=== PATIENT | male | born 1940 | race Caucasian/White ===

== ENCOUNTER 2017-01-09 13:29 | Emergency (ER) | payer MEDICARE ==
[2017-01-09 13:48] VITALS: BP 151/80
[2017-01-09] MEDS ORDERED: Lidocaine 1% MPF* 2 ML VIAL INJ ONE (14:13)
--- NOTE | 2017-01-09 14:14 | UC ---
Laceration HPI - HPI Summary HPI Summary: While working outside sustained PW with broken stick to L hand webbing between 1st and 2nd finger. UTD on tetanus, no bleeding or immune d/o. Has full movement and sensitivity in R 2nd finger. - History Of Current Complaint Chief Complaint: UCLowerExtremity Stated Complaint: JOINT LAC Time Seen by Provider: 01/09/17 14:04 Hx Obtained From: Patient Laceration Location: Hand Mechanism Of Injury: Sharp Trauma Onset/Duration: Sudden Onset Severity: Mild - Allergies/Home Medications Allergies/Adverse Reactions: Allergies Allergy/AdvReac Type Severity Reaction Status Date / Time omnipaque Allergy Rash And Uncoded 09/14/16 08:16 Itching PMH/Surg Hx/FS Hx/Imm Hx Cancer History: Colorectal Cancer - Surgical History Surgical History: Yes Surgery Procedure, Year, and Place: left leg A BABY. [place] [facility] [place]SI[place] - Family History Known Family History: Positive: Hypertension - Social History Lives: With Family Alcohol Use: Weekly Alcohol Amount: BOTTLE OF WINE PER WEEK Substance Use Type: None Smoking Status (MU): Former Smoker Amount Used/How Often: PACK A DAY Have You Smoked in the Last Year: Yes When Did the Patient Quit Smoking/Using Tobacco: 06/2013 - Immunization History Most Recent Influenza Vaccination: 02/2013 Most Recent Tetanus Shot: UNKOWN Most Recent Pneumonia Vaccination: NEVER Review of Systems Constitutional: Negative Skin: Other - R hand lac Eyes: Negative ENT: Negative Respiratory: Negative Cardiovascular: Negative Gastrointestinal: Negative Genitourinary: Negative Motor: Negative Neurovascular: Negative Musculoskeletal: Negative Neurological: Negative Psychological: Negative All Other Systems Reviewed And Are Negative: Yes Physical Exam Triage Information Reviewed: Yes Appearance: Well-Appearing, No Pain Distress, Well-Nourished Vital Signs: Initial Vital Signs Temp 97.8 F 01/09/17 13:45 Pulse 61 01/09/17 13:45 Resp 18 01/09/17 13:45 BP 151/80 01/09/17 13:45 Pulse Ox 100 01/09/17 13:45 Vital Signs Reviewed: Yes Eye Exam: Normal Eyes: Positive: Conjunctiva Clear ENT Exam: Normal ENT: Positive: Hearing grossly normal. Negative: Nasal congestion, Nasal drainage, Tonsillar swelling, Muffled/hoarse voice Dental Exam: Normal Neck exam: Normal Neck: Positive: Supple, Nontender, No Lymphadenopathy Respiratory Exam: Normal Respiratory: Positive: Chest non-tender, Lungs clear, Normal breath sounds, No respiratory distress, No accessory muscle use Cardiovascular Exam: Normal Cardiovascular: Positive: RRR, No Murmur Musculoskeletal: Positive: Strength Intact, ROM Intact Neurological Exam: Normal Neurological: Positive: Alert Psychological Exam: Normal Skin Exam: Other - 2cm lac to R hand with superficial debris noted Laceration Repair - Laceration Repair 1 Description: Stellate Laceration Size After Repair: Length (cm) - 2, Width (mm) - 0, Depth (mm) - 0 Contamination/FB Removal: Multiple small organic FB removal with wound brush and pick Modified For Repair: No Type Injection: Local Anesthesia Used: 1.0% Lido - 3mL Cleansing Completed Via Routine Prep: Yes Irrigation With Pressure Irrigation Device: Yes Closure Material: Sutures Closure Method: Single Layer Suture Of: Skin Suture Type: Nylon - #5 5-0 Laceration Course/Dx - Differential Dx - Laceration/Wound Provider Diagnoses: L hand laceration repair Discharge - Discharge Plan Condition: Stable Disposition: HOME Patient Education Materials: Laceration (ED) Referrals: Caroline Hernandez MD [Primary Care Provider] - Additional Instructions: Come back in 9-10 days for suture removal. Come back sooner if you have increasing redness, drainage, or streaking from the wound.
--- NOTE | 2017-01-09 14:33 | RAD ---
HISTORY: Penetrating trauma, evaluate for foreign body COMPARISONS: None VIEWS: 4, Frontal, lateral, and oblique views of the left hand FINDINGS: BONE DENSITY: Normal. BONES: There is no displaced fracture. 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 ALIGNMENT: There is no dislocation. SOFT TISSUES: Unremarkable. OTHER FINDINGS: There is no radiopaque foreign body IMPRESSION: NO ACUTE OSSEOUS INJURY. NO RADIOPAQUE FOREIGN BODY. IF SYMPTOMS PERSIST, RECOMMEND REPEAT IMAGING.
== END 2017-01-09 15:25 | disposition home or self-care (01) ==
LOC: UCEAST 13:29
DX: S61.422A Laceration with foreign body of left hand, initial encounter (principal); W26.8XXA Contact with other sharp object(s), not elsewhere classified, initial encounter; Y93.89 Activity, other specified; Y92.9 Unspecified place or not applicable; Z85.038 Personal history of other malignant neoplasm of large intestine; Z87.891 Personal history of nicotine dependence
CPT/HCPCS: 12001; 99211; G0463

== ENCOUNTER 2021-08-08 02:26 | Inpatient (IN) ==
[2021-08-08 03:16] LABS: ABS Basophils 0.1 10^3/ul (0-0.2); ABS Eosinophils 0.3 10^3/ul (0-0.6); ABS Lymphocytes 2.5 10^3/ul (1.0-4.8); ABS Monocytes 0.6 10^3/ul (0-0.8); ABS Neutrophils 4.7 10^3/ul (1.5-7.7); Eosinophil % 3.1 %; Hematocrit 41 % (42-52); Hemoglobin 13.6 g/dL (14.0-18.0); Lymphocyte % 30.2 %; Mean Corpuscular HGB Conc 34 g/dL (31-36); Mean Corpuscular Hemoglobin 31 pg (27-31); Mean Corpuscular Volume 93 fL (80-94); Mean Platelet Volume 8.5 fL (7.4-10.4); Nucleated Red Blood Cells % 0.1; Platelet Count 254 10^3/uL (150-450); Red Blood Count 4.38 10^6 /uL (4.18-5.48); Red Cell Distribution Width 14 % (10-15); White Blood Count 8.2 10^3/uL (3.5-10.8)
[2021-08-08 03:38] LABS: High Sens Troponin Baseline 6 pg/mL (<20)
[2021-08-08 03:45] LABS: Urine Appearance Clear; Urine Bilirubin Negative (Negative); Urine Blood Negative (Negative); Urine Color Yellow; Urine Glucose Negative (Negative); Urine Ketones Negative (Negative); Urine Nitrite Negative (Negative); Urine Protein Negative (Negative); Urine Specific Gravity 1.026 (1.002-1.030); Urine Urobilinogen Negative (Negative)
[2021-08-08 04:13] LABS: ALT 9 U/L (7-52); AST 11 U/L (13-39); Albumin/Globulin Ratio 2.1 (1-3); Alcohol, S < 13 mg/dL (<13); Alkaline Phosphatase 54 U/L (35-149); Blood Urea Nitrogen 24 mg/dL (6-24); Calcium 9.2 mg/dL (8.6-10.3); Chloride 107 mmol/L (101-111); Globulin 1.9 g/dL (2-4); Glucose 82 mg/dL (70-100); Potassium 3.8 mmol/L (3.5-5.0); Sodium 141 mmol/L (135-145); Total Protein 5.9 g/dL (6.4-8.9); eGFR CKD-EPI 63.7 (>60)
[2021-08-08 04:20] LABS: Anion Gap 5 mmol/L (2-11); CO2 Carbon Dioxide 29 mmol/L (22-32)
[2021-08-08 04:27] LABS: TSH Ultra Thyroid Stim Horm 3.68 mcIU/mL (0.34-5.60)
[2021-08-08 04:37] LABS: High Sensitivity Troponin 1 Hr 6 pg/mL (<20)
[2021-08-08] MEDS ORDERED: LORazepam 2 mg VIAL 1 ml IV PUSH ONE (20:35)
[2021-08-08] MEDS ORDERED: Lorazepam PYXIS KEY PRN (20:35)
[2021-08-08] MEDS: Enoxaparin 40 MG/0.4 ML SYR SUBCUT SCH (20:57)
[2021-08-09] MEDS ORDERED: Lorazepam PYXIS KEY PRN (08:48)
[2021-08-09] MEDS: LORazepam 2 mg VIAL 1 ml IV PUSH PRN (13:36)
[2021-08-09] MEDS: Enoxaparin 40 MG/0.4 ML SYR SUBCUT SCH (22:50)
[2021-08-10] MEDS: Enoxaparin 40 MG/0.4 ML SYR SUBCUT SCH (21:06)
[2021-08-11 08:53] LABS: ABS Eosinophils 0.1 10^3/ul (0-0.6); ABS Lymphocytes 1.8 10^3/ul (1.0-4.8); ABS Monocytes 0.7 10^3/ul (0-0.8); ABS Neutrophils 10.2 10^3/ul (1.5-7.7); Eosinophil % 0.8 %; Hematocrit 45 % (42-52); Hemoglobin 15.3 g/dL (14.0-18.0); Lymphocyte % 14.2 %; Mean Corpuscular HGB Conc 34 g/dL (31-36); Mean Corpuscular Hemoglobin 32 pg (27-31); Mean Corpuscular Volume 92 fL (80-94); Mean Platelet Volume 8.2 fL (7.4-10.4); Nucleated Red Blood Cells % 0.1; Platelet Count 326 10^3/uL (150-450); Red Blood Count 4.83 10^6 /uL (4.18-5.48); Red Cell Distribution Width 14 % (10-15); White Blood Count 12.9 10^3/uL (3.5-10.8)
[2021-08-11 09:37] LABS: Calcium 9.5 mg/dL (8.6-10.3); Potassium 4.3 mmol/L (3.5-5.0)
[2021-08-11] MEDS ORDERED: Lactated Ringers 1000 ml BAG 1,000 ML IV ONE (10:55)
[2021-08-11 11:46] LABS: C Reactive Protein 14.9 mg/L (<8.01)
[2021-08-11 11:48] LABS: Rapid COVID-19 Molecular Undetected (Undetected)
[2021-08-11] MEDS: LORazepam 2 mg VIAL 1 ml IV PUSH PRN (18:39)
[2021-08-11] MEDS: Enoxaparin 40 MG/0.4 ML SYR SUBCUT SCH (23:57)
[2021-08-12 10:10] LABS: Urine Appearance Clear; Urine Bilirubin Negative (Negative); Urine Blood Negative (Negative); Urine Color Yellow; Urine Glucose Negative (Negative); Urine Ketones Trace (Negative); Urine Nitrite Negative (Negative); Urine Protein Negative (Negative); Urine Specific Gravity 1.026 (1.002-1.030); Urine Urobilinogen Negative (Negative)
[2021-08-12 11:05] LABS: ABS Basophils 0.1 10^3/ul (0-0.2); ABS Eosinophils 0.2 10^3/ul (0-0.6); ABS Lymphocytes 1.6 10^3/ul (1.0-4.8); ABS Monocytes 0.6 10^3/ul (0-0.8); ABS Neutrophils 5.2 10^3/ul (1.5-7.7); Eosinophil % 2.4 %; Hematocrit 41 % (42-52); Hemoglobin 14.2 g/dL (14.0-18.0); Lymphocyte % 21.3 %; Mean Corpuscular HGB Conc 34 g/dL (31-36); Mean Corpuscular Hemoglobin 32 pg (27-31); Mean Corpuscular Volume 93 fL (80-94); Mean Platelet Volume 7.7 fL (7.4-10.4); Platelet Count 272 10^3/uL (150-450); Red Blood Count 4.47 10^6 /uL (4.18-5.48); Red Cell Distribution Width 14 % (10-15); White Blood Count 7.6 10^3/uL (3.5-10.8)
[2021-08-12 12:00] LABS: Calcium 9.3 mg/dL (8.6-10.3); eGFR CKD-EPI 58.8 (>60)
[2021-08-12] MEDS: LORazepam 2 mg VIAL 1 ml IV PUSH PRN (15:36)
[2021-08-12] MEDS: Enoxaparin 40 MG/0.4 ML SYR SUBCUT SCH (20:08)
[2021-08-13 10:53] LABS: Calcium 9.7 mg/dL (8.6-10.3); Potassium 4.1 mmol/L (3.5-5.0); eGFR CKD-EPI 61.8 (>60)
[2021-08-13] MEDS: LORazepam 2 mg VIAL 1 ml IV PUSH PRN (11:44)
[2021-08-13] MEDS: Enoxaparin 40 MG/0.4 ML SYR SUBCUT SCH (22:03)
[2021-08-14] MEDS: LORazepam 2 mg VIAL 1 ml IV PUSH PRN (08:20)
[2021-08-14] MEDS: Enoxaparin 40 MG/0.4 ML SYR SUBCUT SCH (20:59)
[2021-08-15 06:28] LABS: Calcium 9.3 mg/dL (8.6-10.3); Potassium 3.8 mmol/L (3.5-5.0); eGFR CKD-EPI 63.7 (>60)
[2021-08-15] MEDS: LORazepam 2 mg VIAL 1 ml IV PUSH PRN ×3 (15:42→23:44)
[2021-08-15] MEDS: Enoxaparin 40 MG/0.4 ML SYR SUBCUT SCH (21:59)
[2021-08-16] MEDS: Enoxaparin 40 MG/0.4 ML SYR SUBCUT SCH (20:38)
[2021-08-16] MEDS: LORazepam 2 mg VIAL 1 ml IV PUSH PRN (23:26)
[2021-08-17] MEDS: LORazepam 2 mg VIAL 1 ml IV PUSH PRN (14:44)
[2021-08-17] MEDS: Enoxaparin 40 MG/0.4 ML SYR SUBCUT SCH (21:50)
[2021-08-17] MEDS: Nystatin TOP POWDER 15 GM BTL TOPICAL SCH (21:51)
[2021-08-18] MEDS: Nystatin TOP POWDER 15 GM BTL TOPICAL SCH ×2 (10:35→22:08)
[2021-08-18] MEDS: LORazepam 2 mg VIAL 1 ml IV PUSH PRN (19:16)
[2021-08-18] MEDS: Enoxaparin 40 MG/0.4 ML SYR SUBCUT SCH (22:06)
[2021-08-19] MEDS: Nystatin TOP POWDER 15 GM BTL TOPICAL SCH ×2 (12:33→21:04)
[2021-08-19] MEDS: Enoxaparin 40 MG/0.4 ML SYR SUBCUT SCH (21:04)
[2021-08-20] MEDS: Enoxaparin 40 MG/0.4 ML SYR SUBCUT SCH (19:50)
[2021-08-21] MEDS: Enoxaparin 40 MG/0.4 ML SYR SUBCUT SCH (23:01)
[2021-08-22] MEDS: Enoxaparin 40 MG/0.4 ML SYR SUBCUT SCH (20:06)
[2021-08-23 09:14] LABS: eGFR CKD-EPI 59.3 (>60)
[2021-08-23] MEDS: Enoxaparin 40 MG/0.4 ML SYR SUBCUT SCH (20:27)
[2021-08-24] MEDS: Enoxaparin 40 MG/0.4 ML SYR SUBCUT SCH (21:54)
[2021-08-25 14:03] LABS: ABS Basophils 0.1 10^3/ul (0-0.2); ABS Eosinophils 0.3 10^3/ul (0-0.6); ABS Lymphocytes 1.9 10^3/ul (1.0-4.8); ABS Monocytes 0.7 10^3/ul (0-0.8); ABS Neutrophils 7.9 10^3/ul (1.5-7.7); Eosinophil % 2.4 %; Hematocrit 42 % (42-52); Hemoglobin 14.3 g/dL (14.0-18.0); Lymphocyte % 17.3 %; Mean Corpuscular HGB Conc 34 g/dL (31-36); Mean Corpuscular Hemoglobin 31 pg (27-31); Mean Corpuscular Volume 92 fL (80-94); Mean Platelet Volume 7.8 fL (7.4-10.4); Nucleated Red Blood Cells % 0.4; Platelet Count 545 10^3/uL (150-450); Red Blood Count 4.55 10^6 /uL (4.18-5.48); Red Cell Distribution Width 14 % (10-15); White Blood Count 10.8 10^3/uL (3.5-10.8)
[2021-08-25 14:21] LABS: Calcium 9.9 mg/dL (8.6-10.3); Magnesium 2.3 mg/dL (1.9-2.7); Potassium 4.3 mmol/L (3.5-5.0); eGFR CKD-EPI 58.8 (>60)
[2021-08-25] MEDS: Enoxaparin 40 MG/0.4 ML SYR SUBCUT SCH (20:04)
[2021-08-26] MEDS: Enoxaparin 40 MG/0.4 ML SYR SUBCUT SCH (21:48)
[2021-08-27 05:11] LABS: ABS Basophils 0.1 10^3/ul (0-0.2); ABS Eosinophils 0.2 10^3/ul (0-0.6); ABS Monocytes 0.7 10^3/ul (0-0.8); ABS Neutrophils 7.4 10^3/ul (1.5-7.7); Eosinophil % 1.6 %; Hematocrit 39 % (42-52); Hemoglobin 13.7 g/dL (14.0-18.0); Lymphocyte % 19.2 %; Mean Corpuscular HGB Conc 35 g/dL (31-36); Mean Corpuscular Hemoglobin 32 pg (27-31); Mean Corpuscular Volume 90 fL (80-94); Mean Platelet Volume 7.7 fL (7.4-10.4); Nucleated Red Blood Cells % 0.2; Platelet Count 504 10^3/uL (150-450); Red Blood Count 4.32 10^6 /uL (4.18-5.48); Red Cell Distribution Width 14 % (10-15); White Blood Count 10.2 10^3/uL (3.5-10.8)
[2021-08-27 05:42] LABS: Calcium 9.9 mg/dL (8.6-10.3); eGFR CKD-EPI 66.4 (>60)
[2021-08-27] MEDS: Enoxaparin 40 MG/0.4 ML SYR SUBCUT SCH (20:38)
[2021-08-28] MEDS: Enoxaparin 40 MG/0.4 ML SYR SUBCUT SCH (19:56)
[2021-08-29] MEDS: Enoxaparin 40 MG/0.4 ML SYR SUBCUT SCH (19:54)
[2021-08-30] MEDS: Enoxaparin 40 MG/0.4 ML SYR SUBCUT SCH (20:13)
[2021-08-31] MEDS: Enoxaparin 40 MG/0.4 ML SYR SUBCUT SCH (21:51)
[2021-09-01] MEDS: Enoxaparin 40 MG/0.4 ML SYR SUBCUT SCH (20:37)
[2021-09-02 10:07] LABS: ABS Basophils 0.1 10^3/ul (0-0.2); ABS Eosinophils 0.3 10^3/ul (0-0.6); ABS Lymphocytes 2.1 10^3/ul (1.0-4.8); ABS Monocytes 0.9 10^3/ul (0-0.8); ABS Neutrophils 9.6 10^3/ul (1.5-7.7); Eosinophil % 2.7 %; Hematocrit 38 % (42-52); Hemoglobin 12.8 g/dL (14.0-18.0); Lymphocyte % 15.9 %; Mean Corpuscular HGB Conc 34 g/dL (31-36); Mean Corpuscular Hemoglobin 31 pg (27-31); Mean Corpuscular Volume 92 fL (80-94); Mean Platelet Volume 7.7 fL (7.4-10.4); Platelet Count 450 10^3/uL (150-450); Red Blood Count 4.15 10^6 /uL (4.18-5.48); Red Cell Distribution Width 14 % (10-15); White Blood Count 12.9 10^3/uL (3.5-10.8)
[2021-09-02 12:09] LABS: Albumin 3.5 g/dL (3.2-5.2); Calcium 9.1 mg/dL (8.6-10.3); Potassium 4.3 mmol/L (3.5-5.0); Total Bilirubin 0.6 mg/dL (0.2-1.0)
[2021-09-02 12:15] LABS: Albumin/Globulin Ratio 1.5 (1-3); C Reactive Protein 17.75 mg/L (<8.01); Globulin 2.4 g/dL (2-4); Total Protein 5.9 g/dL (6.4-8.9); eGFR CKD-EPI 57.7 (>60)
[2021-09-02] MEDS: Enoxaparin 40 MG/0.4 ML SYR SUBCUT SCH (21:28)
[2021-09-03] MEDS: Enoxaparin 40 MG/0.4 ML SYR SUBCUT SCH (23:08)
[2021-09-04 08:28] LABS: ABS Basophils 0.1 10^3/ul (0-0.2); ABS Eosinophils 0.3 10^3/ul (0-0.6); ABS Lymphocytes 1.5 10^3/ul (1.0-4.8); ABS Monocytes 1.2 10^3/ul (0-0.8); ABS Neutrophils 7.2 10^3/ul (1.5-7.7); Eosinophil % 2.8 %; Hematocrit 35 % (42-52); Hemoglobin 12.4 g/dL (14.0-18.0); Lymphocyte % 14.9 %; Mean Corpuscular HGB Conc 35 g/dL (31-36); Mean Corpuscular Hemoglobin 32 pg (27-31); Mean Corpuscular Volume 90 fL (80-94); Mean Platelet Volume 7.8 fL (7.4-10.4); Platelet Count 368 10^3/uL (150-450); Red Cell Distribution Width 13 % (10-15); White Blood Count 10.4 10^3/uL (3.5-10.8)
[2021-09-04 12:23] VITALS: BP 175/69
== END 2021-09-04 15:21 | disposition short-term general hospital (02) | DRG 56 ==
LOC: ED 02:26 → EDHOLD 09:24 → SUATTDRO 09:24 → SSU 13:22
PROVIDERS: ADMIT Hospitalist; ATTEND Hospitalist

== ENCOUNTER 2021-09-04 15:41 | Inpatient (IN) ==
[2021-09-04] MEDS: Enoxaparin 30 MG/0.3 ML SYR SUBCUT SCH (19:43)
[2021-09-04] MEDS ORDERED: DONEPEZIL 10 MG PO SCH (21:00)
[2021-09-05] MEDS: Enoxaparin 30 MG/0.3 ML SYR SUBCUT SCH (21:01)
[2021-09-06 12:21] LABS: Rapid COVID-19 Molecular Detected (Undetected)
[2021-09-06] MEDS: Enoxaparin 30 MG/0.3 ML SYR SUBCUT SCH (19:58)
[2021-09-07] MEDS ORDERED: Remdesivir 100 mg Vial 200 MG in NS 0.9% 250 ml 210 ML IV ONE (16:45)
[2021-09-07 17:00] LABS: INR 1.11 (0.86-1.15)
[2021-09-07 17:40] LABS: Albumin 3.5 g/dL (3.2-5.2); Albumin/Globulin Ratio 1.4 (1-3); Globulin 2.5 g/dL (2-4); Potassium 3.8 mmol/L (3.5-5.0); Total Bilirubin 0.6 mg/dL (0.2-1.0); eGFR CKD-EPI 67.9 (>60)
[2021-09-07] MEDS: Enoxaparin 30 MG/0.3 ML SYR SUBCUT SCH (19:48)
[2021-09-08 07:43] LABS: INR 1.16 (0.86-1.15)
[2021-09-08 08:11] LABS: Albumin/Globulin Ratio 1.3 (1-3); Calcium 8.8 mg/dL (8.6-10.3); Globulin 2.3 g/dL (2-4); Potassium 3.7 mmol/L (3.5-5.0); Total Bilirubin 0.4 mg/dL (0.2-1.0); Total Protein 5.3 g/dL (6.4-8.9); eGFR CKD-EPI 66.4 (>60)
[2021-09-08] MEDS: Enoxaparin 30 MG/0.3 ML SYR SUBCUT SCH (20:46)
[2021-09-09 07:01] LABS: INR 1.25 (0.86-1.15)
[2021-09-09 07:24] LABS: Albumin 3.3 g/dL (3.2-5.2); Albumin/Globulin Ratio 1.3 (1-3); Calcium 9.1 mg/dL (8.6-10.3); Globulin 2.5 g/dL (2-4); Potassium 3.8 mmol/L (3.5-5.0); Total Bilirubin 0.7 mg/dL (0.2-1.0); Total Protein 5.8 g/dL (6.4-8.9); eGFR CKD-EPI 67.9 (>60)
[2021-09-09] MEDS: Enoxaparin 30 MG/0.3 ML SYR SUBCUT SCH (20:04)
[2021-09-10 06:46] LABS: INR 1.32 (0.86-1.15)
[2021-09-10] MEDS: Enoxaparin 30 MG/0.3 ML SYR SUBCUT SCH (22:00)
[2021-09-11 07:02] LABS: INR 1.27 (0.86-1.15)
[2021-09-11] MEDS: Enoxaparin 30 MG/0.3 ML SYR SUBCUT SCH (21:12)
[2021-09-12 07:54] LABS: INR 1.21 (0.86-1.15)
[2021-09-12] MEDS: Enoxaparin 30 MG/0.3 ML SYR SUBCUT SCH (20:35)
[2021-09-13] MEDS: Enoxaparin 30 MG/0.3 ML SYR SUBCUT SCH (21:06)
[2021-09-14] MEDS: Enoxaparin 30 MG/0.3 ML SYR SUBCUT SCH (20:26)
[2021-09-15] MEDS: Enoxaparin 30 MG/0.3 ML SYR SUBCUT SCH (22:46)
[2021-09-16] MEDS: Enoxaparin 30 MG/0.3 ML SYR SUBCUT SCH (21:22)
[2021-09-17 07:23] VITALS: BP 125/56
== END 2021-09-17 10:10 | DRG 177 ==
LOC: SSU 15:41 → SUATTDRO 15:41 → SSU 09-06 08:30 → MED 09-06 19:53
PROVIDERS: ADMIT Hospitalist; ATTEND Internal Medicine

== ENCOUNTER 2022-01-05 08:08 | Inpatient (IN) ==
[2022-01-05 08:49] LABS: ABS Basophils 0.1 10^3/ul (0-0.2); ABS Eosinophils 0.1 10^3/ul (0-0.6); ABS Lymphocytes 0.8 10^3/ul (1.0-4.8); ABS Monocytes 0.5 10^3/ul (0-0.8); ABS Neutrophils 17.6 10^3/ul (1.5-7.7); Eosinophil % 0.6 %; Hematocrit 32 % (42-52); Hemoglobin 10.6 g/dL (14.0-18.0); Lymphocyte % 4.2 %; Mean Corpuscular HGB Conc 33 g/dL (31-36); Mean Corpuscular Hemoglobin 30 pg (27-31); Mean Corpuscular Volume 91 fL (80-94); Mean Platelet Volume 9.3 fL (7.4-10.4); Platelet Count 155 10^3/uL (150-450); Red Blood Count 3.55 10^6 /uL (4.18-5.48); Red Cell Distribution Width 15 % (10-15)
[2022-01-05 08:58] LABS: Activated Partial Thrombo Time 39.9 seconds (26.0-38.0); INR 1.17 (0.89-1.11)
[2022-01-05 09:12] LABS: High Sens Troponin Baseline 8 pg/mL (<20)
[2022-01-05] MEDS ORDERED: Piperacillin/Tazobac ADVAN 3.375 GM in NS 0.9% 100 ml BAG 100 ML IV ONE (09:24)
[2022-01-05] MEDS ORDERED: Vancomycin 1,000 MG in NS 0.9% 250 ml 250 ML IVPB ONE (09:24)
[2022-01-05 09:33] LABS: ALT 42 U/L (7-52); Albumin 3.6 g/dL (3.2-5.2); Albumin/Globulin Ratio 1.3 (1-3); Alkaline Phosphatase 88 U/L (35-149); Blood Urea Nitrogen 56 mg/dL (6-24); C Reactive Protein 152.48 mg/L (<8.01); CO2 Carbon Dioxide 26 mmol/L (22-32); Calcium 9.3 mg/dL (8.6-10.3); Chloride 104 mmol/L (101-111); Globulin 2.7 g/dL (2-4); Glucose 57 mg/dL (70-100); Sodium 139 mmol/L (135-145); Total Protein 6.3 g/dL (6.4-8.9); eGFR CKD-EPI 33.5 (>60)
[2022-01-05 09:42] LABS: Anion Gap 9 mmol/L (2-11)
[2022-01-05 10:11] LABS: High Sensitivity Troponin 1 Hr 9 pg/mL (<20)
[2022-01-05 11:06] LABS: Potassium Redraw 5.8 mmol/L (3.5-5.0)
[2022-01-05] MEDS ORDERED: Dextrose 50% Syringe 50 ml 25 GM/50 ML SYRINGE IV PUSH ONE (11:15)
[2022-01-05] MEDS ORDERED: NS 0.9% 1000 ml BAG 1,000 ML IV ONE (11:27)
[2022-01-05] MEDS: Enoxaparin 30 MG/0.3 ML SYR SUBCUT SCH (11:36)
[2022-01-05 11:58] LABS: PCO2 Arterial 43 mmHg (35-45); PO2 Arterial 60 mmHg (80-100)
[2022-01-05] MEDS ORDERED: Lactated Ringers 1000 ml BAG 1,000 ML IV ONE (12:16)
[2022-01-05] MEDS ORDERED: Midazolam 5 mg/5 ml VIAL 1 mg/ml 5 ml VIAL (5 mg) IV SLOW PU ONE (12:16)
[2022-01-05] MEDS: diazePAM INJ CARPUJECT 5 MG/ML SYRINGE ONE ×2 (12:18→15:09)
[2022-01-05] MEDS ORDERED: Zosyn per Pharmacy NOTE FOLLOW UP SCH (13:00)
[2022-01-05] MEDS: ZOSYN 3.375 GM Q8H per EXTENDED INFUSION IV SCH ×2 (13:51→22:02)
[2022-01-05] MEDS ORDERED: diazePAM INJ CARPUJECT 5 MG/ML SYRINGE ONE (15:05)
[2022-01-05 15:45] LABS: Urine Appearance Clear; Urine Bilirubin Negative (Negative); Urine Blood Negative (Negative); Urine Color Yellow; Urine Glucose Negative (Negative); Urine Ketones Negative (Negative); Urine Nitrite Negative (Negative); Urine Protein Negative (Negative); Urine Urobilinogen 0.2 (Negative) (Negative); Urine pH 6.5 (5.0-9.0)
[2022-01-05 15:53] LABS: Urine Creatinine Concentration 85.02 mg/dL
[2022-01-05 16:13] LABS: Calcium 8.7 mg/dL (8.6-10.3); eGFR CKD-EPI 35.9 (>60)
[2022-01-05 16:20] LABS: Potassium 5.1 mmol/L (3.5-5.0)
[2022-01-05] MEDS: D5LR 1000 ml BAG 1,000 ML IV SCH (16:41)
[2022-01-05] MEDS: Midazolam 5 mg/5 ml VIAL 1 mg/ml 5 ml VIAL (5 mg) IV SLOW PU PRN ×2 (18:26→23:38)
[2022-01-05 20:54] LABS: Magnesium 2.6 mg/dL (1.9-2.7)
[2022-01-05 21:00] LABS: Phosphorus 3.4 mg/dL (2.5-5.0)
[2022-01-06] MEDS: D5LR 1000 ml BAG 1,000 ML IV SCH ×3 (03:10→22:47)
[2022-01-06] MEDS: Midazolam 5 mg/5 ml VIAL 1 mg/ml 5 ml VIAL (5 mg) IV SLOW PU PRN (03:47)
[2022-01-06 05:09] LABS: ABS Eosinophils 0.1 10^3/ul (0-0.6); ABS Lymphocytes 0.3 10^3/ul (1.0-4.8); ABS Monocytes 0.3 10^3/ul (0-0.8); ABS Neutrophils 17.9 10^3/ul (1.5-7.7); Eosinophil % 0.4 %; Hematocrit 29 % (42-52); Lymphocyte % 1.7 %; Mean Corpuscular HGB Conc 34 g/dL (31-36); Mean Corpuscular Hemoglobin 30 pg (27-31); Mean Corpuscular Volume 90 fL (80-94); Mean Platelet Volume 8.8 fL (7.4-10.4); Platelet Count 121 10^3/uL (150-450); Red Blood Count 3.28 10^6 /uL (4.18-5.48); Red Cell Distribution Width 15 % (10-15); White Blood Count 18.6 10^3/uL (3.5-10.8)
[2022-01-06] MEDS: ZOSYN 3.375 GM Q8H per EXTENDED INFUSION IV SCH ×3 (05:20→21:30)
[2022-01-06 05:53] LABS: Albumin/Globulin Ratio 1.4 (1-3); Calcium 8.7 mg/dL (8.6-10.3); Globulin 2.2 g/dL (2-4); Total Bilirubin 0.5 mg/dL (0.2-1.0); Total Protein 5.2 g/dL (6.4-8.9); eGFR CKD-EPI 31.4 (>60)
[2022-01-06 05:59] LABS: Potassium 5.4 mmol/L (3.5-5.0)
[2022-01-06] MEDS ORDERED: SODIUM ZIRCONIUM CYCLOSILICATE 5 GM PACKET PO ONE (06:19)
[2022-01-06] MEDS ORDERED: Midazolam 2 mg/2 ml VIAL 1 mg/ml 2 ml VIAL (2 mg) IV SLOW PU PRN (06:47)
[2022-01-06 08:58] LABS: Urine Potassium Concentration 68.1 mmol/L
[2022-01-06] MEDS: diazePAM INJ CARPUJECT 5 MG/ML SYRINGE IV PRN ×2 (10:18→15:36)
[2022-01-06] MEDS: Enoxaparin 30 MG/0.3 ML SYR SUBCUT SCH (10:19)
[2022-01-07 04:02] LABS: ABS Eosinophils 0.2 10^3/ul (0-0.6); ABS Lymphocytes 0.6 10^3/ul (1.0-4.8); ABS Monocytes 0.3 10^3/ul (0-0.8); ABS Neutrophils 9.6 10^3/ul (1.5-7.7); Eosinophil % 1.8 %; Hematocrit 29 % (42-52); Hemoglobin 9.5 g/dL (14.0-18.0); Lymphocyte % 5.4 %; Mean Corpuscular HGB Conc 33 g/dL (31-36); Mean Corpuscular Hemoglobin 30 pg (27-31); Mean Corpuscular Volume 90 fL (80-94); Mean Platelet Volume 8.5 fL (7.4-10.4); Platelet Count 121 10^3/uL (150-450); Red Blood Count 3.23 10^6 /uL (4.18-5.48); Red Cell Distribution Width 15 % (10-15); White Blood Count 10.7 10^3/uL (3.5-10.8)
[2022-01-07 04:45] LABS: Calcium 8.5 mg/dL (8.6-10.3); Magnesium 2.2 mg/dL (1.9-2.7); Potassium 4.3 mmol/L (3.5-5.0); eGFR CKD-EPI 33.9 (>60)
[2022-01-07] MEDS: ZOSYN 3.375 GM Q8H per EXTENDED INFUSION IV SCH (04:58)
[2022-01-07] MEDS ORDERED: D10W 500 ml BAG 500 ML IV SCH (07:00)
[2022-01-07 10:52] VITALS: BP 128/57
[2022-01-07] MEDS ORDERED: Morphine 10 MG/ML VIAL (1 ml) IV ONE ×2 (11:45→18:33)
[2022-01-07] MEDS: Enoxaparin 30 MG/0.3 ML SYR SUBCUT SCH (11:56)
[2022-01-07] MEDS: diazePAM INJ CARPUJECT 5 MG/ML SYRINGE IV PRN ×6 (12:03→18:30)
[2022-01-07] MEDS: Morphine PCA ADULT 5 MG/ML 30 ML PCA SCH (13:12)
[2022-01-07] MEDS ORDERED: diazePAM INJ CARPUJECT 5 MG/ML SYRINGE IV PRN ×2 (15:00→16:14)
[2022-01-07] MEDS ORDERED: Atropine 1% (ORAL/SL) 15 ML BTL SL PRN (18:54)
[2022-01-08] MEDS: Morphine PCA ADULT 5 MG/ML 30 ML PCA SCH (02:31)
[2022-01-08] MEDS ORDERED: Midazolam 50 MG VIAL IV DRIP 50 ML IV SCH (09:00)
== END 2022-01-08 08:30 | disposition expired | DRG 189 ==
LOC: ED 08:08 → EDHOLD 10:56 → SUATTDRO 10:56 → ICU 12:14
PROVIDERS: ADMIT Internal Medicine; ATTEND Internal Medicine Critical Care Medicine